=== PATIENT | male | born 1985 | race Caucasian/White ===

== ENCOUNTER 2018-01-26 21:14 | Emergency (ER) | payer OTHER ==
[2018-01-26] MEDS ORDERED: ONDANSETRON 4 MG (ODT) TAB ONE (22:08)
--- NOTE | 2018-01-26 23:04 | ER ---
Nurse's Notes [facility] Name: Evaristo Johnson Jr Age: 32 yrs Sex: Male : 1985 Arrival Date: 01/26/2018 Time: 21:20 Bed 18 Private MD: Portillo Duarte Diagnosis: Acute upper respiratory infection, unspecified;Nausea and vomiting Presentation: 01/26 21:49 Presenting complaint: Patient states: Runny nose, headache, cough, congestion, sore aj throat, vomiting for 2 days. Transition of care: patient was not received from another setting of care. Onset of symptoms was January 24, 2018. Risk Assessment: Do you want to hurt yourself or someone else? Patient reports no desire to harm self or others. Initial Sepsis Screen: Does the patient meet any 2 criteria? No. Patient's initial sepsis screen is negative. Does the patient have a suspected source of infection? No. Patient's initial sepsis screen is negative. Care prior to arrival: None. 21:49 Method Of Arrival: Ambulatory aj 21:49 Acuity: KAYLAN 4 aj Triage Assessment: 21:50 General: Appears in no apparent distress. comfortable, Behavior is calm, cooperative, aj appropriate for age. Pain: Denies pain. EENT: Reports nasal congestion nasal discharge pain when swallowing. Neuro: Level of Consciousness is awake, alert, obeys commands, Oriented to person, place, time, situation, Appropriate for age Reports numbness. Respiratory: Reports cough that is Airway is patent Respiratory effort is even, unlabored, Respiratory pattern is regular, symmetrical. Derm: Skin is intact, is healthy with good turgor, Skin is pink, warm \T\ dry. normal. Historical: - Allergies: 21:50 PENICILLINS; aj - Home Meds: 21:50 citalopram 20 mg tab 1 tab once daily for Major Depressive Disorder [Active]; trazodone aj 150 mg Oral tab 1 tab QHS for Major Depressive Disorder [Active]; - PMHx: 21:50 Depression; aj - PSHx: 21:50 None; aj - Immunization history:: Adult Immunizations up to date. - Social history:: Smoking status: Patient uses tobacco products, chewing tobacco. - Ebola Screening: : Patient negative for fever greater than or equal to 101.5 degrees Fahrenheit, and additional compatible Ebola Virus Disease symptoms Patient denies exposure to infectious person Patient denies travel to an Ebola-affected area in the 21 days before illness onset No symptoms or risks identified at this time. Screenin:55 Abuse screen: Denies threats or abuse. Denies injuries from another. Nutritional cc3 screening: No deficits noted. Tuberculosis screening: No symptoms or risk factors identified. Fall Risk Ambulatory Aid- None/Bed Rest/Nurse Assist (0 pts). Gait- Normal/Bed Rest/Wheelchair (0 pts) Mental Status- Oriented to own ability (0 pts). Assessment: 21:55 General: see triage assessment. cc3 22:20 Reassessment: Patient appears in no apparent distress at this time. Patient and/or cc3 family updated on plan of care and expected duration. Pain level reassessed. Patient is alert, oriented x 3, equal unlabored respirations, skin warm/dry/pink. 23:15 Reassessment: Patient appears in no apparent distress at this time. Patient and/or cc3 family updated on plan of care and expected duration. Pain level reassessed. Patient is alert, oriented x 3, equal unlabored respirations, skin warm/dry/pink. Patient discharged home with prescription given. No IV cannula in situ. Patient left ER vitally stable and ambulatory. Vital Signs: 21:50 BP 126 / 84; Pulse 79; Resp 18; Temp 98.3; Pulse Ox 97% on R/A; Weight 79.38 kg; Height aj 6 ft. 1 in. (185.42 cm); 22:30 BP 118 / 54; Pulse 75; Resp 17 S; Pulse Ox 97% on R/A; cc3 23:07 BP 121 / 57; Pulse 74; Resp 17 S; Pulse Ox 97% on R/A; cc3 21:50 Body Mass Index 23.09 (79.38 kg, 185.42 cm) ED Course: 21:20 Patient arrived in ED. am2 21:20 Portillo Duarte DO is Private Physician. am2 21:50 Triage completed. aj 21:50 Arm band placed on left wrist. Patient placed in an exam room. aj 21:53 Ayan Peres PA is PHCP. cp 21:53 Jayro Aguilera MD is Attending Physician. cp 21:53 Meet Willson MD is Attending Physician. cp 21:53 Trish Basurto is Primary Nurse. cc3 21:55 Patient has correct armband on for positive identification. Bed in low position. Call cc3 light in reach. Side rails up X 1. traffic monitor specialist on. Pulse ox on. NIBP on. 23:15 No provider procedures requiring assistance completed. Patient did not have IV access cc3 during this emergency room visit. Administered Medications: 22:00 Drug: Zofran 4 mg Route: PO; cc3 22:30 Follow up: Response: No adverse reaction; Nausea is decreased cc3 Outcome: 23:03 Discharge ordered by . lexi 23:15 Discharged to home ambulatory. cc3 23:15 Condition: stable 23:15 Discharge instructions given to patient, Instructed on discharge instructions, follow up and referral plans. medication usage, Demonstrated understanding of instructions, follow-up care, medications, Prescriptions given X 2. 23:16 Patient left the ED. cc3 Signatures: Yessenia Jensen, RN RN Ayan Felix PA PA cp Moreno, Amanda am2 Trish Basurto cc3
--- NOTE | 2018-01-26 23:04 | EDPHYS ---
Physician Documentation [facility] Name: Evaristo Johnson Jr Age: 32 yrs Sex: Male : 1985 Arrival Date: 01/26/2018 Time: 21:20 Bed 18 Private MD: Portillo Duarte ED Physician Meet Willson HPI: 01/26 22:10 This 32 yrs old Male presents to ER via Ambulatory with complaints of Flu cp Symptoms. 22:10 The patient or guardian reports cough, that is intermittent, flu symptoms, low-grade cp fever, intermittent vomiting. 22:10 Associated signs and symptoms: Pertinent positives: sore throat, vomiting, Pertinent cp negatives: diarrhea. Severity of symptoms: in the emergency department the symptoms are unchanged. Historical: - Allergies: 21:50 PENICILLINS; aj - Home Meds: 21:50 citalopram 20 mg tab 1 tab once daily for Major Depressive Disorder [Active]; trazodone aj 150 mg Oral tab 1 tab QHS for Major Depressive Disorder [Active]; - PMHx: 21:50 Depression; aj - PSHx: 21:50 None; aj - Immunization history:: Adult Immunizations up to date. - Social history:: Smoking status: Patient uses tobacco products, chewing tobacco. - Ebola Screening: : Patient negative for fever greater than or equal to 101.5 degrees Fahrenheit, and additional compatible Ebola Virus Disease symptoms Patient denies exposure to infectious person Patient denies travel to an Ebola-affected area in the 21 days before illness onset No symptoms or risks identified at this time. ROS: 22:15 Constitutional: Negative for fever, poor PO intake. cp 22:15 Eyes: Negative for injury, pain, redness, and discharge. cp 22:15 ENT: Positive for sore throat, Negative for drainage from ear(s), ear pain, difficulty swallowing, difficulty handling secretions. 22:15 Cardiovascular: Negative for chest pain. 22:15 Respiratory: Positive for cough, with no reported sputum, Negative for shortness of breath, wheezing. 22:15 Abdomen/GI: Positive for vomiting, Negative for abdominal pain, diarrhea, constipation, anorexia. 22:15 Skin: Negative for cellulitis, rash. 22:15 Neuro: Negative for altered mental status, headache, weakness. 22:15 All other systems are negative. Exam: 22:20 Constitutional: The patient appears in no acute distress, alert, awake, non-toxic, well cp developed, well nourished. 22:20 Head/Face: Normocephalic, atraumatic. cp 22:20 Eyes: Periorbital structures: appear normal, Conjunctiva: normal, no exudate, no injection, Sclera: no appreciated abnormality, Lids and lashes: appear normal, bilaterally. 22:20 ENT: External ear(s): are unremarkable, Ear canal(s): are normal, clear, TM's: bulging, is not appreciated, bilaterally, dullness, bilaterally, erythema, is not appreciated, bilaterally, Nose: is normal, Mouth: Lips: moist, Oral mucosa: moist, Posterior pharynx: Airway: no evidence of obstruction, patent, Tonsils: with erythema, no enlargement, no exudate, Uvula: midline, swelling, is not appreciated, erythema, that is mild, exudate, is not appreciated. 22:20 Neck: ROM/movement: is normal, is supple, without pain, no range of motions limitations, no nuchal rigidity, Lymph nodes: no appreciated lymphadenopathy. 22:20 Chest/axilla: Inspection: normal, Palpation: is normal, no crepitus, no tenderness. 22:20 Cardiovascular: Rate: normal, Rhythm: regular. 22:20 Respiratory: the patient does not display signs of respiratory distress, Respirations: normal, no use of accessory muscles, no retractions, no splinting, no tachypnea, labored breathing, is not present, Breath sounds: are clear throughout, no decreased breath sounds, no stridor, no wheezing. 22:20 Abdomen/GI: Inspection: abdomen appears normal, Palpation: abdomen is soft and non-tender, in all quadrants, rebound tenderness, is not appreciated, voluntary guarding, is not appreciated, involuntary guarding, is not appreciated. 22:20 Skin: cellulitis, is not appreciated, no rash present. Vital Signs: 21:50 BP 126 / 84; Pulse 79; Resp 18; Temp 98.3; Pulse Ox 97% on R/A; Weight 79.38 kg; Height aj 6 ft. 1 in. (185.42 cm); 22:30 BP 118 / 54; Pulse 75; Resp 17 S; Pulse Ox 97% on R/A; cc3 23:07 BP 121 / 57; Pulse 74; Resp 17 S; Pulse Ox 97% on R/A; cc3 21:50 Body Mass Index 23.09 (79.38 kg, 185.42 cm) MDM: 21:54 Patient medically screened. cp 22:00 Differential diagnosis: bronchitis, flu, URI, strep throat, gastroenteritis. 23:02 Data reviewed: vital signs, nurses notes, lab test result(s), and as a result, I will cp discharge patient. 23:02 Counseling: I had a detailed discussion with the patient and/or guardian regarding: the cp historical points, exam findings, and any diagnostic results supporting the discharge/admit diagnosis, lab results, to return to the emergency department if symptoms worsen or persist or if there are any questions or concerns that arise at home. 01/26 21:51 Order name: Flu 01/26 21:51 Order name: Strep 01/26 22:06 Order name: PO challenge; Complete Time: 22:59 01/26 22:24 Order name: Throat Culture EDMS Administered Medications: 22:00 Drug: Zofran 4 mg Route: PO; cc3 22:30 Follow up: Response: No adverse reaction; Nausea is decreased cc3 Disposition: 01/27 14:48 Co-signature as Attending Physician, Meet Willson MD I agree with the assessment and mo plan of care. Disposition: 01/26/18 23:03 Discharged to Home. Impression: Acute upper respiratory infection, unspecified, Nausea and vomiting. - Condition is Stable. - Discharge Instructions: Nausea and Vomiting, Adult, Upper Respiratory Infection, Adult. - Prescriptions for Zofran 4 mg Oral Tablet - take 1 tablet by ORAL route every 12 hours As needed; 20 tablet. Tessalon Perles 100 mg Oral Capsule - take 1 capsule by ORAL route every 8 hours As needed; 15 capsule. - Medication Reconciliation Form, Thank You Letter, Antibiotic Education, Prescription Opioid Use form. - Follow up: Private Physician; When: 2 - 3 days; Reason: Recheck today's complaints. - Problem is new. - Symptoms have improved. Signatures: Dispatcher [employer] EDMS Yessenia Jensen RN RN Ayan Felix PA PA cp Appiah, William, MD MD wa Cordel, Charlene cc3 Corrections: (The following items were deleted from the chart) 01/26 23:16 23:03 01/26/2018 23:03 Discharged to Home. Impression: Acute upper respiratory cc3 infection, unspecified; Nausea and vomiting. Condition is Stable. Forms are Medication Reconciliation Form, Thank You Letter, Antibiotic Education, Prescription Opioid Use. Follow up: Private Physician; When: 2 - 3 days; Reason: Recheck today's complaints. Problem is new. Symptoms have improved. cp
== END 2018-01-26 23:16 | disposition home or self-care (01) ==
LOC: ER 21:14
DX: J06.9 Acute upper respiratory infection, unspecified (principal); F32.9 Major depressive disorder, single episode, unspecified; Z72.0 Tobacco use; Z88.0 Allergy status to penicillin
CPT/HCPCS: 87070; 87081; 87804; 99284

== ENCOUNTER 2018-04-13 12:39 | Emergency (ER) | payer OTHER ==
--- NOTE | 2018-04-13 13:55 | ER ---
Nurse's Notes [facility] Name: Evaristo Johnson Jr Age: 32 yrs Sex: Male : 1985 Arrival Date: 04/13/2018 Time: 12:42 Bed 12 Private MD: Diagnosis: Insect bite (nonvenomous), unspecified lower leg;Insect bite (nonvenomous) of back wall of thorax;Insect bite (nonvenomous) of unspecified upper arm Presentation: 04/13 12:54 Presenting complaint: Patient states: "I think I have chicken pox because my whole body aj itches and I have headaches." Pt c/o itching to feet mostly. Rash began 2-3 days ago. Denies fever. Transition of care: patient was not received from another setting of care. Onset of symptoms was March 31, 2018. Risk Assessment: Do you want to hurt yourself or someone else? Patient reports no desire to harm self or others. Initial Sepsis Screen: Does the patient meet any 2 criteria? No. Patient's initial sepsis screen is negative. Does the patient have a suspected source of infection? No. Patient's initial sepsis screen is negative. Care prior to arrival: None. 12:54 Method Of Arrival: Ambulatory 12:54 Acuity: KAYLAN 5 aj Historical: - Allergies: 12:56 PENICILLINS; aj - Home Meds: 12:56 citalopram 20 mg tab 1 tab once daily for Major Depressive Disorder [Active]; trazodone aj 150 mg Oral tab 1 tab QHS for Major Depressive Disorder [Active]; - PMHx: 12:56 Depression; aj - PSHx: 12:56 None; aj - Immunization history:: Adult Immunizations up to date. - Social history:: Smoking status: Patient uses tobacco products, chewing tobacco. - Ebola Screening: : Patient denies exposure to infectious person Patient denies travel to an Ebola-affected area in the 21 days before illness onset. Screenin:57 Abuse screen: Denies threats or abuse. Denies injuries from another. Nutritional ss screening: No deficits noted. Tuberculosis screening: No symptoms or risk factors identified. Never had TB. Fall Risk None identified. Assessment: 12:57 General: Appears in no apparent distress. comfortable, Behavior is calm, cooperative. ss Pain: Denies pain. Neuro: Level of Consciousness is awake, alert, obeys commands, Oriented to. Cardiovascular: Capillary refill < 3 seconds is brisk in bilateral fingers Patient's skin is warm and dry. Respiratory: Airway is patent Respiratory effort is even, unlabored, Respiratory pattern is regular, symmetrical. GI: No signs and/or symptoms were reported involving the gastrointestinal system. EENT: Nares are clear Throat is clear. Derm: Rash noted that is itchy, red, raised. Musculoskeletal: Circulation, motion, and sensation intact. Range of motion: intact in all extremities, Swelling absent. Vital Signs: 12:56 BP 113 / 68; Pulse 68; Resp 16; Temp 98.2(TE); Pulse Ox 100% on R/A; Weight 79.38 kg; aj Pain 0/10; ED Course: 12:42 Patient arrived in ED. sb2 12:56 Triage completed. aj 12:56 Arm band placed on right wrist. aj 12:57 Patient has correct armband on for positive identification. Bed in low position. Call ss light in reach. 13:03 Russel Stephens PA is PHCP. rodrigo 13:03 Ayan Esposito MD is Attending Physician. [facility] 14:17 No provider procedures requiring assistance completed. Patient did not have IV access ss during this emergency room visit. 14:20 Sue Monge, OLYA is Primary Nurse. ss Administered Medications: No medications were administered Outcome: 13:55 Discharge ordered by . [facility] 14:17 Discharged to home ambulatory. ss 14:17 Condition: good 14:17 Discharge instructions given to patient, Instructed on discharge instructions, follow up and referral plans. medication usage, Demonstrated understanding of instructions, follow-up care, medications. 14:20 Patient left the ED. ss Signatures: Yessenia Jensen, RN Russel Jones PA PA jmm Smirch, Shelby, Cherie العلي RN sb2
--- NOTE | 2018-04-13 13:55 | EDPHYS ---
Physician Documentation [facility] Name: Evaristo Johnson Jr Age: 32 yrs Sex: Male : 1985 Arrival Date: 04/13/2018 Time: 12:42 Bed 12 Private MD: ED Physician Ayan Esposito HPI: 04/13 14:03 This 32 yrs old Male presents to ER via Ambulatory with complaints of Rash. [facility] 14:03 The patient's rash thought to be caused by an unknown cause. The rash is located on the jmm body diffusely. Onset: The symptoms/episode began/occurred gradually, 3 day(s) ago. Associated signs and symptoms: Pertinent positives: itching. This is a 32 year old male with a history of depression that presents to the ED with multiple lesions to his extremities and upper back. Patient states the symptoms have been ongoing for approx 3 days. States the lesions are itchy. Denies pain, denies fever. Denies infectious contact. . Historical: - Allergies: 12:56 PENICILLINS; aj - Home Meds: 12:56 citalopram 20 mg tab 1 tab once daily for Major Depressive Disorder [Active]; trazodone aj 150 mg Oral tab 1 tab QHS for Major Depressive Disorder [Active]; - PMHx: 12:56 Depression; aj - PSHx: 12:56 None; aj - Immunization history:: Adult Immunizations up to date. - Social history:: Smoking status: Patient uses tobacco products, chewing tobacco. - Ebola Screening: : Patient denies exposure to infectious person Patient denies travel to an Ebola-affected area in the 21 days before illness onset. ROS: 14:03 Constitutional: Negative for fever, chills, and weight loss, Respiratory: Negative for jmm shortness of breath, cough, wheezing, and pleuritic chest pain. 14:03 Skin: Positive for rash. 14:03 All other systems are negative. Exam: 14:03 Head/Face: atraumatic. Eyes: EOMI, no conjunctival erythema appreciated ENT: Moist jmm Mucus Membranes Neck: Trachea midline, Supple Chest/axilla: Normal chest wall appearance and motion. Cardiovascular: Regular rate and rhythm. No edema appreciated Respiratory: Normal respirations, no respiratory distress appreciated Abdomen/GI: Non distended, soft 14:03 Constitutional: The patient appears in no acute distress, alert, awake. 14:03 Skin: multiple lesions noted which appear to be consistent with insect bite, noted to the distal extremities and the upper back. no surrounding erythema or induration appreciated, no purulent drainage is appreciated. . 14:03 Neuro: Orientation: is normal, Mentation: is normal, Memory: is normal. 14:03 Psych: Behavior/mood is pleasant, cooperative. Vital Signs: 12:56 BP 113 / 68; Pulse 68; Resp 16; Temp 98.2(TE); Pulse Ox 100% on R/A; Weight 79.38 kg; aj Pain 0/10; MDM: 13:09 Patient medically screened. evelyne 13:53 Data reviewed: vital signs, nurses notes. Counseling: I had a detailed discussion with rodrigo the patient and/or guardian regarding: the historical points, exam findings, and any diagnostic results supporting the discharge/admit diagnosis, the need for outpatient follow up, to return to the emergency department if symptoms worsen or persist or if there are any questions or concerns that arise at home. Administered Medications: No medications were administered Disposition: 04/13/18 13:55 Discharged to Home. Impression: Insect bite (nonvenomous), unspecified lower leg, Insect bite (nonvenomous) of back wall of thorax, Insect bite (nonvenomous) of unspecified upper arm. - Condition is Stable. - Discharge Instructions: Insect Bite. - Prescriptions for Elimite 5 % Topical Cream - apply 1 application by TOPICAL route one time Wash after 12 hours.; 60 gram. Hydroxyzine HCl 25 mg Oral Tablet - take 1 tablet by ORAL route every 6 hours As needed; 20 tablet. - Medication Reconciliation Form, Thank You Letter, Antibiotic Education, Prescription Opioid Use form. - Follow up: Private Physician; When: 2 - 3 days; Reason: Recheck today's complaints, Continuance of care, Re-evaluation by your physician. Addendum: 04/17/2018 10:59 Co-signature as Attending Physician, Ayan Esposito MD I agree with the assessment and c clark plan of care. Signatures: Yessenia Jensen, RN Ayan Arisa MD MD cha Mickail, Joel, PA PA jmm Smirch, Shelby, RN RN ss Corrections: (The following items were deleted from the chart) 04/13 14:20 13:55 04/13/2018 13:55 Discharged to Home. Impression: Insect bite (nonvenomous), ss unspecified lower leg; Insect bite (nonvenomous) of back wall of thorax; Insect bite (nonvenomous) of unspecified upper arm. Condition is Stable. Forms are Medication Reconciliation Form, Thank You Letter, Antibiotic Education, Prescription Opioid Use. Follow up: Private Physician; When: 2 - 3 days; Reason: Recheck today's complaints, Continuance of care, Re-evaluation by your physician. rodrigo
== END 2018-04-13 14:20 | disposition home or self-care (01) ==
LOC: ER 12:39
DX: S80.869A Insect bite (nonvenomous), unspecified lower leg, initial encounter (principal); S20.469A Insect bite (nonvenomous) of unspecified back wall of thorax, initial encounter; S40.869A Insect bite (nonvenomous) of unspecified upper arm, initial encounter; W57.XXXA Bitten or stung by nonvenomous insect and other nonvenomous arthropods, initial encounter; F32.9 Major depressive disorder, single episode, unspecified; F17.220 Nicotine dependence, chewing tobacco, uncomplicated; Z79.899 Other long term (current) drug therapy
CPT/HCPCS: 99281

== ENCOUNTER 2018-08-11 14:34 | Emergency (ER) | payer OTHER ==
[2018-08-11 15:28] LABS: Absolute Lymphocytes (CBC) 1.4 K/uL (0.7-4.9); Absolute Monocytes 0.8 K/uL (0.1-1.3); Absolute Neutrophil 4.6 K/uL (1.8-8.0); Basophils % 0.4 % (0-1.3); Eosinophils % 0.9 % (0-4.4); Hematocrit 43.8 % (39.6-49.0); Lymphocytes % 19.9 % (15.3-44.8); MPV 9.4 fL (7.6-11.3); RBC Red Blood Cell Count 4.81 M/uL (4.33-5.43)
[2018-08-11 15:41] LABS: Albumin 4.3 g/dL (3.4-5.0); Bilirubin Direct 0.2 mg/dL (0-0.2); Bilirubin Total 0.9 mg/dL (0.2-1.0); Potassium 3.4 mmol/L (3.5-5.1); Protein, Total 7.7 g/dL (6.4-8.2)
[2018-08-11] MEDS ORDERED: NA CHLORIDE 0.9% 1,000 ML ONE (16:37)
--- NOTE | 2018-08-11 17:08 | RAD REPORT ---
EXAM DESCRIPTION: CT - Abdomen Pelvis W Contrast - 08/11/2018 4:54 pm CLINICAL HISTORY: Abdominal pain. COMPARISON: 2013 TECHNIQUE: Computed axial tomography of the abdomen and pelvis was obtained. 100 cc Isovue-300 is ad ministered intravenously. Oral contrast was given. All CT scans are performed using dose optimization technique as appropriate and may include automated exposure control or mA/KV adjustment according to patient size. FINDINGS: The liver, spleen, pancreas, adrenals and kidneys appear unremarkable. The appendix is normal caliber. There is no evidence of diverticulitis. The bowel caliber and wall thickness is normal Urachal remnant present IMPRESSION: No acute abnormality displayed
--- NOTE | 2018-08-11 17:22 | ER ---
Nurse's Notes [facility] Name: Evaristo Johnson Jr Age: 32 yrs Sex: Male : 1985 Arrival Date: 08/11/2018 Time: 14:36 Bed 25 Private MD: Diagnosis: Constipation, unspecified Presentation: 08/11 14:38 Transition of care: patient was not received from another setting of care. Onset of la1 symptoms was August 11, 2018. Risk Assessment: Do you want to hurt yourself or someone else? Patient reports no desire to harm self or others. Initial Sepsis Screen: Does the patient meet any 2 criteria? No. Patient's initial sepsis screen is negative. Does the patient have a suspected source of infection? No. Patient's initial sepsis screen is negative. Care prior to arrival: None. 14:38 Method Of Arrival: Ambulatory la1 14:38 Acuity: KAYLAN 3 la1 14:38 Presenting complaint: Patient states: I have been having lower abd pain and not had a la1 BM since . Pt denies vomiting, states he is nauseous. Historical: - Allergies: 14:37 PENICILLINS; la1 - PMHx: 14:37 Depression; la1 - Immunization history:: Adult Immunizations up to date. - Social history:: Smoking status: unknown. - Ebola Screening: : No symptoms or risks identified at this time. - Family history:: not pertinent. - Hospitalizations: : No recent hospitalization is reported. Screenin:55 Abuse screen: Denies threats or abuse. Denies injuries from another. Nutritional aj screening: No deficits noted. Tuberculosis screening: No symptoms or risk factors identified. Fall Risk None identified. Assessment: 14:54 General: Appears in no apparent distress. comfortable, Behavior is calm, cooperative, aj appropriate for age. Pain: Complains of pain in abdomen. Neuro: Level of Consciousness is awake, alert, obeys commands, Oriented to person, place, time, situation, Appropriate for age. Respiratory: Airway is patent Respiratory effort is even, unlabored, Respiratory pattern is regular, symmetrical. GI: Reports lower abdominal pain, upper abdominal pain, constipation. Derm: Skin is intact, is healthy with good turgor, Skin is pink, warm \T\ dry. normal. 15:04 Reassessment: Patient finished PO contrast. Provided emesis bag for spitting while aj using chewing tobacco, per patient request. Vital Signs: 14:40 BP 132 / 100; Pulse 96; Resp 16; Temp 97.5; Pulse Ox 97% on R/A; Weight 79.38 kg; la1 Height 6 ft. 0 in. (182.88 cm); Pain 10/10; 17:50 BP 131 / 99; Pulse 89; Resp 20; Pulse Ox 99% on R/A; aj 14:40 Body Mass Index 23.73 (79.38 kg, 182.88 cm) la1 ED Course: 14:36 Patient arrived in ED. rg4 14:37 Arm band placed on right wrist. la1 14:38 Triage completed. la1 14:43 Marc Alba MD is Attending Physician. rn 14:45 Inserted saline lock: 22 gauge in left antecubital area, using aseptic technique. aj 14:46 Yessenia Jensen, RN is Primary Nurse. aj 14:55 Patient has correct armband on for positive identification. aj 16:54 CT Abd/Pelvis - W/Contrast In Process Unspecified. EDMS 16:55 CT completed. Patient tolerated procedure well. Patient moved back from CT. kw1 17:50 No provider procedures requiring assistance completed. IV discontinued, intact, aj bleeding controlled, No redness/swelling at site. Pressure dressing applied. Administered Medications: 16:27 Drug: NS 0.9% 1000 ml Route: IV; Rate: 1000 ml; Site: left antecubital; aj 17:49 Follow up: Response: No adverse reaction; IV Status: Completed infusion; IV Intake: aj 1000ml 17:42 Not Given (Physician Discretion): Zofran 4 mg IVP once; over 2 minutes aj 17:48 Drug: Magnesium Citrate Liquid 300 ml Route: PO; aj 17:48 Follow up: Response: Medication administered at discharge. aj 17:49 Drug: Fleet Enema 133 ml Route: KS; aj 17:49 Follow up: Response: Medication administered at discharge. aj Intake: 17:49 IV: 1000ml; Total: 1000ml. aj Outcome: 17:22 Discharge ordered by . rn 17:50 Discharged to home ambulatory, with friend. aj 17:50 Condition: good 17:50 Discharge instructions given to patient, Instructed on discharge instructions, follow up and referral plans. Demonstrated understanding of instructions, follow-up care. 17:52 Patient left the ED. himanshu Signatures: Dispatcher [employer] Yessenia Soto RN RN aj Nieto, Roman, MD MD rn Attema, Lee, RN RN la1 Garcia, Rubi rg4 Wilhelm, Kimberly kw Corrections: (The following items were deleted from the chart) 15:30 15:04 Reassessment: Patient finished PO contrast himanshu downs
--- NOTE | 2018-08-11 17:22 | EDPHYS ---
Physician Documentation [facility] Name: Evaristo Johnson Jr Age: 32 yrs Sex: Male : 1985 Arrival Date: 08/11/2018 Time: 14:36 Bed 25 Private MD: ED Physician Marc Alba HPI: 08/11 14:52 This 32 yrs old Male presents to ER via Ambulatory with complaints of rn Constipation. 14:52 The patient presents with abdominal pain in the lower abdomen. Onset: The rn symptoms/episode began/occurred 1 week(s) ago. The symptoms do not radiate. Associated signs and symptoms: Pertinent positives: constipation, Pertinent negatives: anorexia, blood in stools, fever, testicular pain. The symptoms are described as crampy. Modifying factors: The symptoms are alleviated by nothing, the symptoms are aggravated by touching the area. Severity of pain: At its worst the pain was mild in the emergency department the pain is unchanged. The patient has not experienced similar symptoms in the past. Reports constipation, abd pain, intermittent, last BM was 8 days ago, is passing gas. Has tried stool softeners but not laxatives, drinking a lot of water, + normal appetite. . 14:52 Reports recent change in meds, taking trazodone and citalopram. . rn Historical: - Allergies: 14:37 PENICILLINS; la1 - PMHx: 14:37 Depression; la1 - Immunization history:: Adult Immunizations up to date. - Social history:: Smoking status: unknown. - Ebola Screening: : No symptoms or risks identified at this time. - Family history:: not pertinent. - Hospitalizations: : No recent hospitalization is reported. ROS: 14:52 Constitutional: Negative for fever, chills, and weight loss, Eyes: Negative for injury, rn pain, redness, and discharge, Cardiovascular: Negative for chest pain, palpitations, and edema, Respiratory: Negative for shortness of breath, cough, wheezing, and pleuritic chest pain, Abdomen/GI: + abd pain and constipation Back: Negative for injury and pain, MS/Extremity: Negative for injury and deformity, Skin: Negative for injury, rash, and discoloration, Neuro: Negative for headache, weakness, numbness, tingling, and seizure. Exam: 14:52 Constitutional: This is a well developed, well nourished patient who is awake, alert, rn and in no acute distress. Head/Face: Normocephalic, atraumatic. Eyes: Pupils equal round and reactive to light, extra-ocular motions intact. Lids and lashes normal. Conjunctiva and sclera are non-icteric and not injected. Cornea within normal limits. Periorbital areas with no swelling, redness, or edema. ENT: MMM Abdomen/GI: soft, + mild suprapubic tenderness, no rebound Skin: Warm, dry with normal turgor. Normal color with no rashes, no lesions, and no evidence of cellulitis. MS/ Extremity: Pulses equal, no cyanosis. Neurovascular intact. Full, normal range of motion. Equal circumference. Neuro: Awake and alert, GCS 15, oriented to person, place, time, and situation. Cranial nerves II-XII grossly intact. Motor strength 5/5 in all extremities. Sensory grossly intact. Cerebellar exam normal. Normal gait. Vital Signs: 14:40 BP 132 / 100; Pulse 96; Resp 16; Temp 97.5; Pulse Ox 97% on R/A; Weight 79.38 kg; la1 Height 6 ft. 0 in. (182.88 cm); Pain 10/10; 17:50 BP 131 / 99; Pulse 89; Resp 20; Pulse Ox 99% on R/A; aj 14:40 Body Mass Index 23.73 (79.38 kg, 182.88 cm) la1 MDM: 14:43 Patient medically screened. rn 17:20 Differential diagnosis: bowel obstruction, diverticulitis, gastritis, constipation, rn fecal retention, fecal impaction. Data reviewed: vital signs, nurses notes, lab test result(s), radiologic studies, CT scan, and as a result, I will discharge patient. Counseling: I had a detailed discussion with the patient and/or guardian regarding: the historical points, exam findings, and any diagnostic results supporting the discharge/admit diagnosis, lab results, radiology results, the need for outpatient follow up, to return to the emergency department if symptoms worsen or persist or if there are any questions or concerns that arise at home. Special discussion: I discussed with the patient/guardian in detail that at this point there is no indication for admission to the hospital. It is understood, however, that if the symptoms persist or worsen the patient needs to return immediately for re-evaluation. ED course: Pt with no acute findings on ct abdomen, will given enema and magnesium citrate along with IV fluids, and recommends bowel regimen as well as hydration when goes home. . 08/11 14:51 Order name: Basic Metabolic Panel; Complete Time: 15:42 rn 08/11 14:51 Order name: CBC with Diff; Complete Time: 15:42 rn 08/11 14:51 Order name: Hepatic Function; Complete Time: 15:42 rn 08/11 14:51 Order name: Lipase; Complete Time: 15:42 rn 08/11 14:51 Order name: CT Abd/Pelvis - W/Contrast; Complete Time: 17:10 rn 08/11 14:51 Order name: IV Start; Complete Time: 16:05 rn 08/11 14:51 Order name: Labs collected and sent; Complete Time: 16:05 rn Administered Medications: 16:27 Drug: NS 0.9% 1000 ml Route: IV; Rate: 1000 ml; Site: left antecubital; aj 17:49 Follow up: Response: No adverse reaction; IV Status: Completed infusion; IV Intake: aj 1000ml 17:42 Not Given (Physician Discretion): Zofran 4 mg IVP once; over 2 minutes aj 17:48 Drug: Magnesium Citrate Liquid 300 ml Route: PO; aj 17:48 Follow up: Response: Medication administered at discharge. aj 17:49 Drug: Fleet Enema 133 ml Route: CT; aj 17:49 Follow up: Response: Medication administered at discharge. aj Disposition: 08/11/18 17:22 Discharged to Home. Impression: Constipation, unspecified. - Condition is Stable. - Discharge Instructions: Constipation, Adult. - Medication Reconciliation Form, Thank You Letter, Antibiotic Education, Prescription Opioid Use form. - Follow up: Private Physician; When: As needed; Reason: Recheck today's complaints, Re-evaluation by your physician. - Problem is an ongoing problem. - Symptoms are unchanged. Signatures: Dispatcher [employer] EDYessenia Early RN RN aj Nieto, Roman, MD MD rn Attema, Lee, RN RN la1 Corrections: (The following items were deleted from the chart) 17:52 17:22 08/11/2018 17:22 Discharged to Home. Impression: Constipation, unspecified. aj Condition is Stable. Forms are Medication Reconciliation Form, Thank You Letter, Antibiotic Education, Prescription Opioid Use. Follow up: Private Physician; When: As needed; Reason: Recheck today's complaints, Re-evaluation by your physician. Problem is an ongoing problem. Symptoms are unchanged. rn
[2018-08-11] MEDS ORDERED: FLEET ENEMA ADULT PR ONE (17:49)
[2018-08-11] MEDS ORDERED: MAGNESIUM CITRATE 300 ML BOT ONE (17:49)
== END 2018-08-11 17:52 | disposition home or self-care (01) ==
LOC: ER 14:34
DX: K59.00 Constipation, unspecified (principal); F32.9 Major depressive disorder, single episode, unspecified; Z88.0 Allergy status to penicillin
CPT/HCPCS: 85025; 80048; 36415; 80076; 83690; 74177; 96360; 99284; Q9967; J7030

== ENCOUNTER 2021-11-08 09:43 | Emergency (ER) | payer OTHER ==
[2021-11-08] MEDS ORDERED: ONDANSETRON 4 MG/2 ML VIAL ONE (12:12)
[2021-11-08] MEDS ORDERED: MORPHINE 2 MG/ML SYR ONE (12:12)
[2021-11-08] MEDS ORDERED: NA CHLORIDE 0.9% 2,000 ML ONE (12:13)
[2021-11-08] MEDS ORDERED: METRONIDAZOLE 500mg IVPB 0 MG/0 ML BAG IV ONE (12:13)
[2021-11-08] MEDS ORDERED: CIPROFLOXACIN 400mg IV 0 MG/0 ML BAG IV ONE (12:13)
[2021-11-08 12:32] LABS: Absolute Lymphocytes (CBC) 2.2 K/uL (0.7-4.9); Hematocrit 45.2 % (39.6-49.0); Lymphocytes % 30.2 % (15.3-44.8); MCV 90.2 fL (80-100); MPV 8.9 fL (7.6-11.3); RBC Red Blood Cell Count 5.01 M/uL (4.33-5.43)
[2021-11-08 12:43] LABS: Albumin 3.9 g/dL (3.4-5.0); Bilirubin Total 0.3 mg/dL (0.2-1.0); Potassium 4.2 mmol/L (3.5-5.1); Protein, Total 7.5 g/dL (6.4-8.2)
[2021-11-08 13:20] LABS: Urine Blood Negative (Negative); Urine Glucose Negative (Negative); Urine Protein Negative (Negative); Urine Specific Gravity 1.015 (1.005-1.030); Urine pH 6.5 (5.0-7.0)
--- NOTE | 2021-11-08 13:29 | RAD REPORT ---
EXAM DESCRIPTION: CT - Abdomen Pelvis W Contrast - 11/08/2021 1:08 pm CLINICAL HISTORY: LLQ abdominal pain COMPARISON: Abdomen Pelvis W Contrast dated 08/11/2018 TECHNIQUE: Biphasic, helical CT imaging of the abdomen and pelvis was performed following 100 ml non -ionic IV contrast. No oral contrast administered. All CT scans are performed using dose optimization technique as appropriate and may include automated exposure control or mA/KV adjustment according to patient size. FINDINGS: Lung base assessment is limited due to motion. No acute finding suspected. The liver, spleen, and pancreas show no suspicious findings. Gallbladder and biliary tree are also wi thout suspicious finding. Symmetric renal function is seen with no hydronephrosis or suspicious renal mass. No pyelonephritis o r acute parenchymal process. Partially filled bladder is grossly normal. No definitive evidence for c ystitis. Prostate gland and seminal vesicles within normal range. No adrenal abnormalities. No dilated bowel loops or bowel wall thickening. No appendicitis or other acute GI finding. Nonspecif ic enteritis can't be possible and not have a CT correlate. No free air, free fluid or inflammatory s tranding. No hernia, mass or bulky lymphadenopathy. No suspicious bony findings. IMPRESSION: Contrast enhanced CT abdomen and pelvis showing no acute or emergent finding.
[2021-11-08 13:39] LABS: Urine Bacteria <20 /HPF (<20); Urine RBC <5 /HPF (None Seen)
--- NOTE | 2021-11-08 14:31 | ER ---
Nurse's Notes [facility] Name: Evaristo Johnson Jr Age: 36 yrs Sex: Male : 1985 Arrival Date: 11/08/2021 Time: 09:49 Bed 8 Private MD: Diagnosis: Abdominal pain, unspecified;Constipation Presentation: 11/08 10:03 Chief complaint: Patient states: he is having lower abdominal pain all along the front ap3 lower quadrant of his abdomen. patient states the pain began 11/05/2021, and reports being diagnosed with a kidney infection yesterday at the clinic. Coronavirus screen: At this time, the client does not indicate any symptoms associated with coronavirus-19. Ebola Screen: No symptoms or risks identified at this time. Initial Sepsis Screen: Does the patient meet any 2 criteria? No. Patient's initial sepsis screen is negative. Does the patient have a suspected source of infection? Yes: Other: pt reports kidney infection. Risk Assessment: Do you want to hurt yourself or someone else? Patient reports no desire to harm self or others. Onset of symptoms was November 05, 2021. 10:03 Method Of Arrival: Ambulatory ap3 10:03 Acuity: KAYLAN 3 ap3 Triage Assessment: 10:07 General: Appears in no apparent distress. Behavior is calm, cooperative. Pain: ap3 Complains of pain in right lower quadrant and left lower quadrant Pain currently is 10 out of 10 on a pain scale. Quality of pain is described as tender, "like getting stung by bees" Pain began gradually, 2-3 days ago. Neuro: Level of Consciousness is awake, alert, obeys commands, Oriented to person, place, time, situation, Gait is steady, Speech is normal. Cardiovascular: Patient's skin is warm and dry. Respiratory: Airway is patent Respiratory effort is even, unlabored, Respiratory pattern is regular, symmetrical. GI: Patient currently denies diarrhea, nausea, vomiting. : Reports pain with urination. Historical: - Allergies: 10:06 PENICILLINS; ap3 - Home Meds: 10:06 citalopram 20 mg tab 1 tab once daily for Major Depressive Disorder [Active]; trazodone ap3 150 mg Oral tab 1 tab QHS for Major Depressive Disorder [Active]; - PMHx: 10:06 Depression; ap3 - Immunization history:: Client reports receiving the 2nd dose of the Covid vaccine. - Social history:: Smoking status: Patient reports use of chewing tobacco. - Family history:: not pertinent. Screenin:08 Abuse screen: Denies threats or abuse. Nutritional screening: No deficits noted. ap3 Tuberculosis screening: No symptoms or risk factors identified. Fall Risk None identified. Assessment: 11:27 General: Appears in no apparent distress. uncomfortable, Behavior is calm, cooperative. tp1 Pain: Complains of pain in left lower quadrant and right lower quadrant Pain currently is 10 out of 10 on a pain scale. Quality of pain is described as crampy, Pain began 2-3 days ago. Is continuous. Neuro: Level of Consciousness is awake, alert, obeys commands, Oriented to person, place, time, situation. Cardiovascular: Patient's skin is warm and dry. Respiratory: Airway is patent Respiratory effort is even, unlabored. GI: Abdomen is round non-distended, Abd is soft Abdomen is tender to palpation in right lower quadrant Patient currently denies diarrhea, nausea, vomiting. : Reports burning with urination, stated "sometimes hard to urinate". EENT: No signs and/or symptoms were reported regarding the EENT system. Derm: Skin is pink, warm \\T\\ dry. Musculoskeletal: Circulation, motion, and sensation intact. 12:27 Reassessment: Patient appears in no apparent distress at this time. No changes from tp1 previously documented assessment. Patient and/or family updated on plan of care and expected duration. Pain level reassessed. Patient is alert, oriented x 3, equal unlabored respirations, skin warm/dry/pink. 13:46 Reassessment: Patient appears in no apparent distress at this time. No changes from tp1 previously documented assessment. Patient and/or family updated on plan of care and expected duration. Pain level reassessed. Patient is alert, oriented x 3, equal unlabored respirations, skin warm/dry/pink. states pain 20/10, faces scale 2. Vital Signs: 10:03 BP 126 / 78; Pulse 70; Resp 18; Temp 97.6; Pulse Ox 98% ; Weight 97.52 kg; Height 6 ft. ap3 1 in. (185.42 cm); Pain 10/10; 11:31 BP 121 / 81; Pulse 58; Resp 16; Pulse Ox 98% on R/A; Pain 10/10; tp1 13:48 BP 120 / 80; Pulse 58; Resp 16; Pulse Ox 99% on R/A; tp1 10:03 Body Mass Index 28.37 (97.52 kg, 185.42 cm) ap3 ED Course: 09:49 Patient arrived in ED. mr 10:05 Triage completed. ap3 10:08 Arm band placed on right wrist. ap3 11:04 Bettina Croft, RN is Primary Nurse. vg1 11:19 Ayan Esposito MD is Attending Physician. [facility] 11:21 Primary Nurse role handed off by Bettina Croft, OLYA tp1 11:21 Sophie Luna, OLYA is Primary Nurse. tp1 11:31 Patient has correct armband on for positive identification. Bed in low position. Call tp1 light in reach. Side rails up X 1. Pulse ox on. NIBP on. 12:10 Initial lab(s) drawn, by nm, sent to lab. Inserted saline lock: 20 gauge in right tp1 antecubital area, using aseptic technique. Blood collected. 13:10 CT Abd/Pelvis - IV Contrast Only In Process Unspecified. EDMS 14:19 Dolores Cunningham MD is Referral Physician. [facility] Administered Medications: 12:08 Drug: Zofran (Ondansetron) 4 mg Route: IVP; Site: right antecubital; tp1 16:36 Follow up: Response: No adverse reaction; Marked relief of symptoms vg1 12:10 Drug: morphine 2 mg Route: IVP; Infused Over: 4 mins; Site: right antecubital; tp1 13:47 Follow up: Response: Pain is unchanged, physician notified tp1 12:14 Drug: NS 0.9% 1000 ml Route: IV; Rate: 1 bolus; Site: right antecubital; tp1 16:36 Follow up: IV Status: Completed infusion; IV Intake: 1000ml vg1 12:14 Drug: NS 0.9% 1000 ml Route: IV; Rate: 1 bolus; Site: right antecubital; tp1 16:36 Follow up: IV Status: Completed infusion; IV Intake: 1000ml vg1 14:36 Not Given (Physician Discretion): Cipro (ciprofloxacin) 400 mg 200 ml IVPB once over 60 tp1 mins 14:36 Not Given (Physician Discretion): Flagyl (metroNIDAZOLE) 500 mg 100 ml IVPB at 200 tp1 ml/hr once over 30 mins Intake: 16:36 IV: 1000ml; Total: 1000ml. vg1 16:36 IV: 1000ml; Total: 2000ml. vg1 Outcome: 14:31 Discharge ordered by MD. stubbs 14:56 Patient left the ED. evelyne Signatures: Dispatcher [employer] EDAyan Dominguez MD MD cha Rivera, Cecy mr Yessenia Martinez, RN RN ap3 Bettina Croft RN RN vg1 Sophie Luna RN RN tp1 Corrections: (The following items were deleted from the chart) 13:47 13:45 General: tp1 tp1
--- NOTE | 2021-11-08 14:31 | EDPHYS ---
Physician Documentation [facility] Name: Evaristo Johnson Jr Age: 36 yrs Sex: Male : 1985 Arrival Date: 11/08/2021 Time: 09:49 Bed 8 Private MD: ANUJ Physician Ayan Esposito HPI: 11/08 13:14 This 36 yrs old Male presents to ER via Ambulatory with complaints of Abdominal Pain. evelyne 13:14 The patient presents with abdominal pain in the lower abdomen, abdominal distention in evelyne the upper abdomen, in the lower abdomen. Onset: The symptoms/episode began/occurred 2 day(s) ago. The patient presents with urinary symptoms, dysuria. Onset: The symptoms/episode began/occurred 2 day(s) ago. Modifying factors: The symptoms are alleviated by remaining still, the symptoms are aggravated by movement. The symptoms do not radiate. Associated signs and symptoms: The patient has no apparent associated signs or symptoms. Associated signs and symptoms: Pertinent positives: dysuria. Modifying factors: The symptoms are alleviated by nothing, the symptoms are aggravated by movement, vomiting. Severity of pain: At its worst the pain was mild in the emergency department the pain is unchanged. Historical: - Allergies: 10:06 PENICILLINS; ap3 - Home Meds: 10:06 citalopram 20 mg tab 1 tab once daily for Major Depressive Disorder [Active]; trazodone ap3 150 mg Oral tab 1 tab QHS for Major Depressive Disorder [Active]; - PMHx: 10:06 Depression; ap3 - Immunization history:: Client reports receiving the 2nd dose of the Covid vaccine. - Social history:: Smoking status: Patient reports use of chewing tobacco. - Family history:: not pertinent. ROS: 13:14 Constitutional: Negative for fever, chills, and weight loss, Eyes: Negative for injury, evelyne pain, redness, and discharge, ENT: Negative for injury, pain, and discharge, Neck: Negative for injury, pain, and swelling, Cardiovascular: Negative for chest pain, palpitations, and edema, Respiratory: Negative for shortness of breath, cough, wheezing, and pleuritic chest pain, Back: Negative for injury and pain, : Negative for injury, bleeding, discharge, and swelling, MS/Extremity: Negative for injury and deformity, Skin: Negative for injury, rash, and discoloration, Neuro: Negative for headache, weakness, numbness, tingling, and seizure, Psych: Negative for depression, anxiety, suicide ideation, homicidal ideation, and hallucinations, Allergy/Immunology: Negative for hives, rash, and allergies, Endocrine: Negative for neck swelling, polydipsia, polyuria, polyphagia, and marked weight changes, Hematologic/Lymphatic: Negative for swollen nodes, abnormal bleeding, and unusual bruising. 13:14 Abdomen/GI: Positive for abdominal pain, of the suprapubic area, right lower quadrant and left lower quadrant. Exam: 13:14 Constitutional: This is a well developed, well nourished patient who is awake, alert, evelyne and in no acute distress. Head/Face: Normocephalic, atraumatic. Eyes: Pupils equal round and reactive to light, extra-ocular motions intact. Lids and lashes normal. Conjunctiva and sclera are non-icteric and not injected. Cornea within normal limits. Periorbital areas with no swelling, redness, or edema. ENT: Nares patent. No nasal discharge, no septal abnormalities noted. Tympanic membranes are normal and external auditory canals are clear. Oropharynx with no redness, swelling, or masses, exudates, or evidence of obstruction, uvula midline. Mucous membranes moist. Neck: Trachea midline, no thyromegaly or masses palpated, and no cervical lymphadenopathy. Supple, full range of motion without nuchal rigidity, or vertebral point tenderness. No Meningismus. Chest/axilla: Normal chest wall appearance and motion. Nontender with no deformity. No lesions are appreciated. Cardiovascular: Regular rate and rhythm with a normal S1 and S2. No gallops, murmurs, or rubs. Normal PMI, no JVD. No pulse deficits. Respiratory: Lungs have equal breath sounds bilaterally, clear to auscultation and percussion. No rales, rhonchi or wheezes noted. No increased work of breathing, no retractions or nasal flaring. Back: No spinal tenderness. No costovertebral tenderness. Full range of motion. Male : Normal genitalia with no discharge or lesions. Skin: Warm, dry with normal turgor. Normal color with no rashes, no lesions, and no evidence of cellulitis. MS/ Extremity: Pulses equal, no cyanosis. Neurovascular intact. Full, normal range of motion. Neuro: Awake and alert, GCS 15, oriented to person, place, time, and situation. Cranial nerves II-XII grossly intact. Motor strength 5/5 in all extremities. Sensory grossly intact. Cerebellar exam normal. Normal gait. Psych: Awake, alert, with orientation to person, place and time. Behavior, mood, and affect are within normal limits. 13:14 Abdomen/GI: Inspection: abdomen appears normal, Bowel sounds: normal, in all quadrants, Palpation: mild abdominal tenderness, moderate abdominal tenderness, in the suprapubic area, right lower quadrant and left lower quadrant, Liver: no appreciated palpable abnormalities, Hernia: not appreciated. Vital Signs: 10:03 BP 126 / 78; Pulse 70; Resp 18; Temp 97.6; Pulse Ox 98% ; Weight 97.52 kg; Height 6 ft. ap3 1 in. (185.42 cm); Pain 10/10; 11:31 BP 121 / 81; Pulse 58; Resp 16; Pulse Ox 98% on R/A; Pain 10/10; tp1 13:48 BP 120 / 80; Pulse 58; Resp 16; Pulse Ox 99% on R/A; tp1 10:03 Body Mass Index 28.37 (97.52 kg, 185.42 cm) ap3 MDM: 11:19 Patient medically screened. [facility] 13:18 Differential diagnosis: nonspecific abdominal pain, prostatitis, Cholelithiasis, evelyne diverticulitis, gastritis, non-specific abd pain, pancreatitis, Peptic Ulcer Disease, Pyelonephritis, urinary tract infection. Data reviewed: vital signs, nurses notes, lab test result(s), radiologic studies, CT scan. Data interpreted: front desk monitor: rate is 98 beats/min, rhythm is regular, Pulse oximetry: on room air is 98 %. Test interpretation: by ED physician or midlevel provider: ECG, plain radiologic studies. Counseling: I had a detailed discussion with the patient and/or guardian regarding: the historical points, exam findings, and any diagnostic results supporting the discharge/admit diagnosis, lab results, radiology results. 11/08 11:53 Order name: CBC with Diff; Complete Time: 13:12 [facility] 11/08 11:53 Order name: CMP; Complete Time: 13:12 [facility] 11/08 11:53 Order name: Lipase; Complete Time: 13:12 [facility] 11/08 11:53 Order name: Urine Microscopic Only; Complete Time: 14:18 [facility] 11/08 11:53 Order name: CT Abd/Pelvis - IV Contrast Only; Complete Time: 14:18 [facility] 11/08 13:20 Order name: Urine Dipstick-Ancillary; Complete Time: 14:18 [facility] 11/08 11:53 Order name: IV Saline Lock; Complete Time: 12:24 [facility] 11/08 11:53 Order name: Labs collected and sent; Complete Time: 12:24 [facility] 11/08 11:53 Order name: Urine Dipstick-Ancillary (obtain specimen); Complete Time: 13:19 [facility] Administered Medications: 12:08 Drug: Zofran (Ondansetron) 4 mg Route: IVP; Site: right antecubital; tp1 16:36 Follow up: Response: No adverse reaction; Marked relief of symptoms vg1 12:10 Drug: morphine 2 mg Route: IVP; Infused Over: 4 mins; Site: right antecubital; tp1 13:47 Follow up: Response: Pain is unchanged, physician notified tp1 12:14 Drug: NS 0.9% 1000 ml Route: IV; Rate: 1 bolus; Site: right antecubital; tp1 16:36 Follow up: IV Status: Completed infusion; IV Intake: 1000ml vg1 12:14 Drug: NS 0.9% 1000 ml Route: IV; Rate: 1 bolus; Site: right antecubital; tp1 16:36 Follow up: IV Status: Completed infusion; IV Intake: 1000ml vg1 14:36 Not Given (Physician Discretion): Cipro (ciprofloxacin) 400 mg 200 ml IVPB once over 60 tp1 mins 14:36 Not Given (Physician Discretion): Flagyl (metroNIDAZOLE) 500 mg 100 ml IVPB at 200 tp1 ml/hr once over 30 mins Disposition Summary: 11/08/21 14:31 Discharge Ordered Location: Home evelyne Problem: new evelyne Symptoms: have improved evelyne Condition: Stable evelyne Diagnosis - Abdominal pain, unspecified evelyne - Constipation evelyne Followup: evelyne - With: Private Physician - When: 2 - 3 days - Reason: Recheck today's complaints, Continuance of care, Re-evaluation by your physician Followup: evelyne - With: Dolores Cunningham MD - When: 2 - 3 days - Reason: Recheck today's complaints, Re-evaluation by your physician Discharge Instructions: - Discharge Summary Sheet evelyne - Abdominal Pain, Adult evelyne - Constipation, Adult evelyne Forms: - Medication Reconciliation Form evelyne - Thank You Letter evelyne - Antibiotic Education evelyne - Prescription Opioid Use [facility] Prescriptions: - Miralax - take 17 gram by ORAL route once daily; 14 packet; Refills: 0, Product Selection evelyne Permitted - dicyclomine 20 mg Oral Tablet - take 1 tablet by ORAL route 4 times per day; 28 tablet; Refills: 0, Product evelyne Selection Permitted Signatures: Dispatcher [employer] EDAyan Dominguez MD MD cha Prokisch, Amanda, RN RN ap3 Sophie Luna RN RN tp1 Bettina Croft RN vg1
[2021-11-08 15:06] VITALS: TEMP 97.6
[2021-11-08 15:18] VITALS: BP 120/80; O2SAT 99
== END 2021-11-08 14:56 | disposition home or self-care (01) ==
LOC: ER 09:43
DX: K59.00 Constipation, unspecified (principal); F32.A Depression, unspecified; F17.220 Nicotine dependence, chewing tobacco, uncomplicated; Z88.0 Allergy status to penicillin
CPT/HCPCS: 96361; 85025; 36415; 83690; 80053; 74177; 96375; 96374; 99284; Q9967; J2270; J7030; J2405; 81003; 81015; J0744; J3490